=== PATIENT | female | born 1990 | race Caucasian/White ===

== ENCOUNTER 2018-08-22 15:36 | Emergency (ER) | payer SELFPAY ==
[2018-08-22 15:54] VITALS: BMI 19.7
[2018-08-22 16:01] VITALS: BP 98/64; PULSE 79; RESP 17; TEMP 98.6; O2SAT 100
[2018-08-22] MEDS ORDERED: cefTRIAXone (Rocephin) 250 mg Inj IM STA (17:00)
[2018-08-22 17:24] LABS: SQUAMOUS EPITHIAL 5 /hpf (0-5); URINE BACTERIA OCC (<OCC); URINE BILIRUBIN NEGATIVE (NEGATIVE); URINE BLOOD NEGATIVE (NEGATIVE); URINE CLARITY Hazy (Clear); URINE COLOR Yellow (YELLOW); URINE GLUCOSE (UA) NORMAL (Normal); URINE LEUKOCYTE ESTERASE 2+ Leu/uL (Negative); URINE PROTEIN NEGATIVE (NEGATIVE); URINE UROBILINOGEN NORMAL mg/dL (0.2-1.0)
--- NOTE | 2018-08-22 18:23 | C.PDOC ---
History Of Present Illness 27 year old female is sent to the ED by Dr. Wright for a MERCHANDISE MANAGER examination. Patient reports feeling three bumps outside her vaginal and associated vaginal discharge. Patient reports history of chlamydia, after having unprotected sexual intercourse, and states she was treated three months ago. Patient reports recent protected sexual intercourse. She denies abdominal pain, nausea, vomiting, or urinary symptoms at this time. Time Seen by Provider: 08/22/18 16:11 Chief Complaint (Nursing): Female Genitourinary History Per: Patient History/Exam Limitations: no limitations Onset/Duration Of Symptoms: Days Current Symptoms Are (Timing): Still Present Quality Of Discomfort: "Pain" Associated Symptoms: denies: Nausea, Vomiting, Urinary Symptoms Additional History Per: Patient Abnormal Vaginal Bleeding: No Past Medical History Reviewed: Historical Data, Nursing Documentation, Vital Signs Vital Signs: Last Vital Signs Temp 98.6 F 08/22/18 15:52 Pulse 79 08/22/18 15:52 Resp 17 08/22/18 15:52 BP 98/64 L 08/22/18 15:52 Pulse Ox 100 08/22/18 15:52 - Medical History PMH: Asthma Surgical History: No Surg Hx Family History: States: Unknown Family Hx - Social History Hx Alcohol Use: Yes Hx Substance Use: No - Immunization History Hx Tetanus Toxoid Vaccination: No Hx Influenza Vaccination: No Hx Pneumococcal Vaccination: No Review Of Systems Gastrointestinal: Negative for: Nausea, Vomiting, Abdominal Pain Genitourinary: Positive for: Vaginal Discharge, Other (three bumps noted to outside of vagina ). Negative for: Dysuria, Frequency, Hematuria Physical Exam - Physical Exam Appears: Non-toxic, No Acute Distress Skin: Normal Color, Warm, Dry Gastrointestinal/Abdominal: Soft, No Tenderness Pelvic: Vaginal Discharge (moderate amount, yellow-beige ), Cervical Motion Tenderness (mild), Other (three tender bumps to the external outer labia. 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 ) Extremity: Normal ROM Neurological/Psych: Normal Speech, Normal Cognition ED Course And Treatment - Laboratory Results Lab Results: Urine Color Yellow (YELLOW) 08/22/18 17:08 Urine Clarity Hazy (Clear) 08/22/18 17:08 Urine pH 7.0 (5.0-8.0) 08/22/18 17:08 Ur Specific [place] 1.020 (1.003-1.030) 08/22/18 17:08 Urine Protein Negative mg/dL (NEGATIVE) 08/22/18 17:08 Urine Glucose (UA) Normal mg/dL (Normal) 08/22/18 17:08 Urine Ketones Negative mg/dL (NEGATIVE) 08/22/18 17:08 Urine Blood Negative (NEGATIVE) 08/22/18 17:08 Urine Nitrate Negative (NEGATIVE) 08/22/18 17:08 Urine Bilirubin Negative (NEGATIVE) 08/22/18 17:08 Urine Urobilinogen Normal mg/dL (0.2-1.0) 08/22/18 17:08 Ur Leukocyte Esterase 2+ Eric/uL (Negative) H 08/22/18 17:08 Urine WBC (Auto) 10 /hpf (0-5) H 08/22/18 17:08 Urine RBC (Auto) 2 /hpf (0-3) 08/22/18 17:08 Ur Squamous Epith Cells 5 /hpf (0-5) 08/22/18 17:08 Urine Bacteria Occ (<OCC) H 08/22/18 17:08 O2 Sat by Pulse Oximetry: 100 (on RA) Pulse Ox Interpretation: Normal Medical Decision Making Medical Decision Making: Progress: Urinalysis and GC/Chlamydia swab ordered and reviewed. Rocephin IM and Zithromax PO given. On reassessment, patient is resting comfortably, showing no signs of distress and is stable for discharge. Patient will be treated for GC/chlamydia in the ED. Will recommend outpatient herpes testing. Disposition Counseled Patient/Family Regarding: Studies Performed, Diagnosis, Need For Followup, Rx Given - Disposition Referrals: [facility] [Outside] Disposition: HOME/ ROUTINE Disposition Time: 18:20 Condition: GOOD Additional Instructions: Follow up with a distribution field engineer as soon as possible' recommend outpatient testing for genital herpes. Take acyclovir three times a day for the next 10 days. Recommend no sexual intercourse until you have been tested for all sti in outpatient setting. Try distribution field engineer as well as [facility] for care. 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 - Scribe Statement The provider has reviewed the documentation as recorded by the Scribe (Radha Canseco) All medical record entries made by the Scribe were at my direction and personally dictated by me. I have reviewed the chart and agree that the record accurately reflects my personal performance of the history, physical exam, medical decision making, and the department course for this patient. I have also personally directed, reviewed, and agree with the discharge instructions and disposition.
== END 2018-08-22 18:36 | disposition home or self-care (01) ==
LOC: C.ER 15:36
DX: A60.03 Herpesviral cervicitis (principal)
CPT/HCPCS: 81001; 81025; 87086; 87491; 87591; 96372; 99283; J0696